=== PATIENT | female | born 1980 | race Two or more races ===

== ENCOUNTER 2024-04-25 19:14 | Emergency (ER) | payer MEDICAID ==
[~2024-04-25] VITALS: Ht 167.6 cm; Wt 67.6 kg
[2024-04-25 19:36] VITALS: BP 119/65; TEMP 98.2; O2SAT 99
[2024-04-25 20:15] LABS: BASOPHILS # (AUTO) 0.1 K/uL (0.0-0.2); EOSINOPHILS # (AUTO) 0.4 K/uL (0.0-0.7); EOSINOPHILS % (AUTO) 6.4 % (0.0-6.0); HEMATOCRIT 36 % (33-45); HEMOGLOBIN 11.7 g/dL (11.5-14.8); LYMPHOCYTES # (AUTO) 2.1 K/uL (0.8-4.8); LYMPHOCYTES % (AUTO) 35.1 % (20.0-44.0); MEAN CORPUSCULAR HEMOGLOBIN 27 PG (26.0-33.0); MEAN CORPUSCULAR HGB CONC 33 g/dl (31.0-36.0); MEAN CORPUSCULAR VOLUME 82 fL (82-100); MONOCYTES # (AUTO) 0.5 K/uL (0.1-1.30); MONOCYTES % (AUTO) 8.6 % (2.0-12.0); NEUTROPHILS % (AUTO) 48.9 % (43.0-81.0); PLATELET COUNT (AUTO) 264 K/uL (150-450); RED BLOOD CELL COUNT(AUTO) 4.35 MIL/uL (4.0-5.2); RED CELL DISTRIBUTION WIDTH 16.6 % (11.5-15.0); WHITE BLOOD COUNT (AUTO) 6.1 K/uL (4.3-11.0)
[2024-04-25 20:23] LABS: CALCIUM, SERUM 9.6 mg/dL (8.5-10.1); CREATININE 0.8 mg/dL (0.6-1.3); POTASSIUM 3.9 mmol/L (3.5-5.1)
[2024-04-25 20:28] LABS: INR 1.05 (0.91-1.10); PARTIAL THROMBOPLASTIN TIME 25.8 SEC (24.3-34.3); PROTHROMBIN TIME 11.1 SECS (9.2-11.1)
[2024-04-25] MEDS ORDERED: WARF-58 PO (20:48)
== END 2024-04-25 20:54 | disposition home or self-care (01) ==
LOC: ER 19:17
DX: Z95.1 Presence of aortocoronary bypass graft (principal); R79.1 Abnormal coagulation profile; Z76.0 Encounter for issue of repeat prescription; Z79.01 Long term (current) use of anticoagulants; Z60.2 Problems related to living alone
CPT/HCPCS: 36415; 80048-TC; 85025-TC; 85730-TC